=== PATIENT | male | born 1935 | race Caucasian/White ===

== ENCOUNTER 2017-11-06 12:27 | Day surgery (SDC) | payer MEDICARE ==
[2017-11-02 09:14] VITALS: BMI 26.6
[~2017-11-06 12:27] MED LIST: LACTATED RINGERS 1,000 ML IV SCH; LIDOCAINE 1% 20 ML VIAL (10MG/ML) FOR IV START INTRADERMA PRN; MIDAZOLAM 2 MG/2 ML VIAL IV PRN
[2017-11-06 13:31] VITALS: RESP 16; TEMP 97.5
[2017-11-06] MEDS ORDERED: PROPOFOL 10 MG/ML 20 ML VIAL IV ONE (14:41)
[2017-11-06] MEDS ORDERED: GLYCOPYRROLATE 0.2 MG/ML 2 ML VIAL ONE (14:41)
[2017-11-06] MEDS ORDERED: LIDOCAINE 1% INJ 10MG/ML (20 ML MDV) ONE (14:41)
--- NOTE | 2017-11-06 15:15 | P.PCN ---
Date of Procedure: 11/06/17 Procedure(s) Performed: Procedure: Esophagogastroduodenoscopy and biopsy. Preoperative diagnosis: Dysphagia. Postoperative diagnosis: 1. Gastritis but no obvious esophagitis, hiatal hernia or complicated reflux disease. 2. Biopsies obtained from the antrum and esophagus. Preparation and sedation: Was provided by anesthesia. Brief clinical history: The patient is an 82-year-old male who has been having few episodes of obstructive dysphagia over the last couple months or so whereby food with pile up in his esophagus and he would have to bring it up before he can swallow again. I did perform an upper endoscopy back in April 2010 because of reflux symptoms and at that time there was some sustained contractions of the esophagus as I was advancing the endoscope even at the level of the GE junction and I had to apply constant steady pressure before this would let go raising the possibility of hypertonic lower esophageal sphincter or diffuse esophageal spasm or other motility disorders. At that time biopsies of the esophagus showed mild chronic reflux esophagitis. The patient is not having any weight loss or other alarm symptoms.. Procedure: With the patient on his left lateral decubitus position and after informed consent and adequate sedation, I passed the Olympus-GIF 160 video upper endoscope through the cricopharyngeus down the esophagus. As previously observed, the esophagus was going into spasms not allowing the endoscope to go through despite sustained pressure until it finally gives way and relaxes at which time I would be able to pass the endoscope. GE junction was around 40 cm from the incisors and there was no definite hiatal hernia. There was no definite esophagitis or complicated reflux disease including any strictures or Espitia's esophagus. The endoscope was then passed into the stomach which was insufflated with air and inspected in detail including the retroflex view in the cardia. There was some mottling and erythema in the antrum but no ulcers or erosions. Pyloric channel, duodenal bulb, post bulbar area and descending duodenum appeared within normal limits. I obtained biopsies from the antrum and esophagus before the endoscope was withdrawn. The patient tolerated the procedure well. Plan: The patient was reassured. Consideration can be given for a motility study especially if the episodes become more often and if there is nutritional compromise.
[2017-11-06 15:19] VITALS: BP 172/90; PULSE 54
== END 2017-11-06 15:36 | disposition home or self-care (01) ==
LOC: ORWHC2ENDO 12:27
DX: K29.50 Unspecified chronic gastritis without bleeding (principal); K21.0 Gastro-esophageal reflux disease with esophagitis; I10 Essential (primary) hypertension; E78.5 Hyperlipidemia, unspecified; Z79.899 Other long term (current) drug therapy
CPT/HCPCS: 43239; 88305; J2001; J2704

== ENCOUNTER 2022-05-28 18:34 | Emergency (ER) | payer MEDICARE ==
[2022-05-28 18:43] VITALS: TEMP 98
[2022-05-28] MEDS ORDERED: DIPH,PERTUS(ACELL)TETVAC-LF 0.5 ML VIAL IM ONE (19:21)
[2022-05-28] MEDS ORDERED: LIDOCAINE 1% INJ 10MG/ML (30 ML VIAL-PF) SQ ONE (19:22)
--- NOTE | 2022-05-28 19:55 | XR ---
EXAMINATION TYPE: XR hand complete RT DATE OF EXAM: 05/28/2022 7:32 PM INDICATION: Patient age:Male; 86 years old; Reason for study: laceration; PHH. COMPARISON: None TECHNIQUE: Frontal, lateral and oblique views of the right hand were obtained. FINDINGS: No evidence for fracture or dislocation. Advanced degenerative changes of the distal interphalangeal, carpometacarpal and radiocarpal joints. Degenerative changes with blunting of the distal radial ulna r joint. No acute soft tissue abnormalities. No radiopaque foreign bodies. IMPRESSION: 1. No evidence for fracture or dislocation. 2. 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
--- NOTE | 2022-05-28 20:26 | ED ---
General Adult HPI - General Chief complaint: Wound/Laceration Stated complaint: Hand Lac Time Seen by Provider: 05/28/22 19:05 Source: patient, RN notes reviewed Mode of arrival: ambulatory Limitations: no limitations - History of Present Illness Initial comments: 86-year-old male presents the emergency department for right hand laceration. He reports that he was working in his bathroom when he fell backwards and cut his hand on his toilet. He denies hitting his head, loss of consciousness, any anticoagulant use. He did not take any Tylenol or Motrin prior to arrival. He denies any dizziness or lightheadedness, numbness or tingling - Related Data Home Medications Medication Instructions Recorded Confirmed Aspirin [Adult Low Dose Aspirin EC] 81 mg PO MOWEFR 11/02/17 11/06/17 Lovastatin [Mevacor] 40 mg PO QAM 11/02/17 11/06/17 Multivitamins, Thera [Multivitamin 1 tab PO DAILY 11/02/17 11/06/17 (formulary)] lisinopriL [Zestril] 20 mg PO DAILY 11/02/17 11/06/17 Allergies Allergy/AdvReac Type Severity Reaction Status Date / Time No Known Allergies Allergy Verified 11/06/17 13:12 Review of Systems ROS Statement: Those systems with pertinent positive or pertinent negative responses have been documented in the HPI. ROS Other: All systems not noted in ROS Statement are negative. Past Medical History Past Medical History: GERD/Reflux, Hyperlipidemia Additional Past Medical History / Comment(s): recent enlarged lymph node left arm, hx asbestosis, diff swallowing, "throat closes after eating and then taking a drink of cold fluid", History of Any Multi-Drug Resistant Organisms: None Reported Past Surgical History: Tonsillectomy Additional Past Surgical History / Comment(s): skin graft left arm after farm injury, EGD, Colonoscopy Past Anesthesia/Blood Transfusion Reactions: No Reported Reaction Past Psychological History: No Psychological Hx Reported Past Alcohol Use History: Occasional Past Drug Use History: None Reported - Past Family History Sister(s) Family Medical History: Cancer Mother Family Medical History: Cancer General Exam Limitations: no limitations General appearance: alert, in no apparent distress Head exam: Present: atraumatic, normocephalic, normal inspection Eye exam: Present: normal appearance, PERRL, EOMI. Absent: scleral icterus, conjunctival injection, periorbital swelling ENT exam: Present: normal exam, mucous membranes moist Neck exam: Present: normal inspection. Absent: tenderness, meningismus, lymphadenopathy Respiratory exam: Present: normal lung sounds bilaterally. Absent: respiratory distress, wheezes, rales, rhonchi, stridor Cardiovascular Exam: Present: regular rate, normal rhythm, normal heart sounds. Absent: systolic murmur, diastolic murmur, rubs, gallop, clicks GI/Abdominal exam: Present: soft, normal bowel sounds. Absent: distended, tenderness, guarding, rebound, rigid Extremities exam: Present: normal inspection, full ROM, normal capillary refill. Absent: tenderness, pedal edema, joint swelling, calf tenderness Right Hand L/R Front: 1 - laceration (3cm laceration to palmar surface of R hand, without erythema, edema, fluctuance. 2+ radial pulses, distal NVI) Back exam: Present: normal inspection Neurological exam: Present: alert, oriented X3, CN II-XII intact Psychiatric exam: Present: normal affect, normal mood Skin exam: Present: warm, dry, intact, normal color. Absent: rash Course Vital Signs 05/28/22 05/28/22 18:38 20:29 Temperature 98 F Pulse Rate 60 68 Respiratory 53 H 18 Rate Blood Pressure 185/80 173/84 O2 Sat by Pulse 97 97 Oximetry - Reevaluation(s) Reevaluation #1: 05/28/22 19:30 sutures applied to patient patient tolerated well. Procedures - Laceration Laceration #1 Consent Obtained: verbal consent Site: hand Description: linear Depth: simple, single layer Anesthetic Used: lidocaine 1% Anesthesia Technique: local infiltration Amount (mls): 10 Pre-repair: wound explored, irrigated extensively Type of Sutures: vicryl Size of Sutures: 5-0 Number of Sutures: 6 Technique: simple, interrupted Patient Tolerated Procedure: well, no complications Medical Decision Making - Medical Decision Making Was pt. sent in by a medical professional or institution (, PA, DAIRY CLERK, urgent care, hospital, or long-term...) When possible be specific @ -[No] Did you speak to anyone other than the patient for history (EMS, parent, family, police, friend...)? What history was obtained from this source @ -[No] Did you review nursing and triage notes (agree or disagree)? Why? @ -[I reviewed and agree with nursing and triage notes] Were old charts reviewed (outside hosp., previous admission, EMS record, old EKG , old radiological studies, urgent care reports/EKG's, long-term records)? Report findings @ -[No old charts were reviewed] Differential Diagnosis (chest pain, altered mental status, abdominal pain women, abdominal pain men, vaginal bleeding, weakness, fever, dyspnea, syncope, headache, dizziness, GI bleed, back pain, seizure, CVA, palpatations, mental hea lth)? @ -[not applicable] EKG interpreted by me (3pts min.). @ -[As above] X-rays interpreted by me (1pt min.). @ -Right hand x-ray negative for any evidence of foreign body or fracture. CT interpreted by me (1pt min.). @ -[None done] U/S interpreted by me (1pt. min.). @ -[None done] What testing was considered but not performed or refused? (CT, X-rays, U/S, labs)? Why? @ -[None] What meds were considered but not given or refused? Why? @ -[None] Did you discuss the management of the patient with other professionals (professionals i.e. , PA, DAIRY CLERK, lab, RT, psych nurse, geriatric social work professor, audio visual engineer, teacher, custodial officer, counseling case manager)? Give summary @ -[No] Was smoking cessation discussed for >3mins.? @ -[No] Was critical care preformed (if so, how long)? @ -[No] Were there social determinants of health that impacted care today? How? (Homelessness, low income, unemployed, alcoholism, drug addiction, transportati on, low edu. Level, literacy, decrease access to med. care, intermediate, rehab)? @ -[No] Was there de-escalation of care discussed even if they declined (Discuss DNR or withdrawal of care, Hospice)? DNR status @ -[No] What co-morbidities impacted this encounter? (DM, HTN, Smoking, COPD, CAD, Cancer, CVA, ARF, Chemo, Hep., AIDS, mental health diagnosis, sleep apnea, morbid obesity)? @ -[None] Was patient admitted / discharged? Hospital course, mention meds given and route, prescriptions, significant lab abnormalities, going to OR and other pertinent info. @ -6-year-old male presenting to the emergency department for right hand laceration. Patient had a history and physical performed, physical EXAM reveals a 3 cm laceration on the palmar surface of right hand. Patient had 6 sutures placed while in the emergency department. The procedure was tolerated well. All questions and return precautions were discussed with the patient. I discussed the case with Dr. Grier [facility] who agrees with plan for discharge. Undiagnosed new problem with uncertain prognosis? @ -[No] Drug Therapy requiring intensive monitoring for toxicity (Heparin, Nitro, Insulin, Cardizem)? @ -[No] Were any procedures done? @ -[No] Diagnosis/symptom? @ Laceration Acute, or Chronic, or Acute on Chronic? @Acute lt] Uncomplicated (without systemic symptoms) or Complicated (systemic symptoms)? @uncomplicated Side effects of treatment? @ -[No] Exacerbation, Progression, or Severe Exacerbation? @ -[No] Poses a threat to life or bodily function? How? (Chest pain, [place], NC, pneumonia, PE, COPD, DKA, ARF, appy, cholecystitis, CVA, Diverticulitis, Homicidal, Rios icidal, threat to staff... and all critical care pts) @ -[No] Disposition Clinical Impression: Laceration Disposition: HOME SELF-CARE Condition: Stable Instructions (If sedation given, give patient instructions): Laceration (ED) Additional Instructions: Please return to the nearest ED if worsening redness, numbness, or tingling develop. Follow up for removal in 7-10 days Is patient prescribed a controlled substance at d/c from ED?: No If Rx opioid, was Start Talking consent form obtained?: No Referrals: Nonstaff,Physician [Primary Care Provider] - 1-2 days Time of Disposition: 20:25
[2022-05-28 20:29] VITALS: BP 173/84; PULSE 68; RESP 18
== END 2022-05-28 20:32 | disposition home or self-care (01) ==
LOC: EC 18:34
DX: S61.411A Laceration without foreign body of right hand, initial encounter (principal); K21.9 Gastro-esophageal reflux disease without esophagitis; E78.5 Hyperlipidemia, unspecified; Z79.82 Long term (current) use of aspirin; Z79.899 Other long term (current) drug therapy; W26.9XXA Contact with unspecified sharp object(s), initial encounter; Y92.002 Bathroom of unspecified non-institutional (private) residence as the place of occurrence of the external cause; Z23 Encounter for immunization
CPT/HCPCS: 99283; 90471; 12002; 73130; 90715; J2001

== ENCOUNTER 2022-09-29 16:19 | Inpatient (IN) | payer MEDICARE ==
--- NOTE | 2022-09-29 16:37 | ED ---
Fall HPI - General Chief Complaint: Fall Stated Complaint: fall - hip injury Time Seen by Provider: 09/29/22 16:36 Source: patient, RN notes reviewed, old records reviewed, Caregiver Mode of arrival: EMS Limitations: no limitations - History of Present Illness Initial Comments: This is a 87-year-old male here today. Patient presents today after fall this is a fall from standing resulting in severe left hip pain and inability to ambulate. Patient has no significant medical history takes no medications no blood thinners. Did not his head is also consciousness no prior history of orthopedic surgery MD Complaint: fall, other (Severe left hip pain) -: hour(s) Fall From: standing When Fall Occurred: 1 hour [employer] Fall Witnessed: yes, by family Place Fall Occurred: home Loss of Consciousness: none Prolonged Down Time?: no Symptoms Prior to Fall: none Location - Extremities: Left: Thigh, Leg Severity: severe Severity scale (1-10): 10 Quality: sharp Context: tripped/slipped Associated Symptoms: denies - Related Data Home Medications Medication Instructions Recorded Confirmed Aspirin [Adult Low Dose Aspirin EC] 81 mg PO DAILY 11/02/17 09/29/22 Lovastatin [Mevacor] 40 mg PO DAILY 11/02/17 09/29/22 lisinopriL [Zestril] 20 mg PO DAILY 11/02/17 09/29/22 Timolol 0.5% Ophth Soln [Timoptic 1 drop BOTH EYES DAILY 09/29/22 09/29/22 0.5% Ophth Soln] Allergies Allergy/AdvReac Type Severity Reaction Status Date / Time No Known Allergies Allergy Verified 09/29/22 18:03 Review of Systems ROS Statement: Those systems with pertinent positive or pertinent negative responses have been documented in the HPI. ROS Other: All systems not noted in ROS Statement are negative. Past Medical History Past Medical History: GERD/Reflux, Hyperlipidemia Additional Past Medical History / Comment(s): recent enlarged lymph node left arm, hx asbestosis, diff swallowing, "throat closes after eating and then taking a drink of cold fluid", History of Any Multi-Drug Resistant Organisms: None Reported Past Surgical History: Tonsillectomy Additional Past Surgical History / Comment(s): skin graft left arm after farm injury, EGD, Colonoscopy Past Anesthesia/Blood Transfusion Reactions: No Reported Reaction Past Psychological History: No Psychological Hx Reported Past Alcohol Use History: Occasional Past Drug Use History: None Reported - Past Family History Sister(s) Family Medical History: Cancer Mother Family Medical History: Cancer General Exam - General Exam Comments Initial Comments: Airways patent Trachea is midline Breath sounds equal bilaterally Significant deformity of left hip General appearance: alert, in no apparent distress Head exam: Present: atraumatic, normocephalic, normal inspection Eye exam: Present: normal appearance, PERRL, EOMI. Absent: scleral icterus, conjunctival injection, periorbital swelling ENT exam: Present: normal exam, mucous membranes moist Neck exam: Present: normal inspection. Absent: tenderness, meningismus, lymphadenopathy Respiratory exam: Present: normal lung sounds bilaterally. Absent: respiratory distress, wheezes, rales, rhonchi, stridor Cardiovascular Exam: Present: regular rate, normal rhythm, normal heart sounds. Absent: systolic murmur, diastolic murmur, rubs, gallop, clicks GI/Abdominal exam: Present: soft, normal bowel sounds. Absent: distended, tenderness, guarding, rebound, rigid Extremities exam: Present: normal inspection, full ROM, normal capillary refill, other (Significant malformation and deformity of left hip). Absent: tenderness, pedal edema, joint swelling, calf tenderness Back exam: Present: normal inspection Neurological exam: Present: alert, oriented X3, CN II-XII intact Psychiatric exam: Present: normal affect, normal mood Skin exam: Present: warm, dry, intact, normal color. Absent: rash Course Vital Signs 09/29/22 09/29/22 09/29/22 16:31 20:20 20:28 Temperature 98 F Pulse Rate 63 85 85 Respiratory 18 18 16 Rate Blood Pressure 123/57 147/91 141/97 O2 Sat by Pulse 96 98 97 Oximetry - Reevaluation(s) Reevaluation #1: 09/29/22 20:40 Medical records reviewed Reevaluation #2: 09/29/22 20:40 Patient is having difficulty control pain but improving here in the ER Reevaluation #3: 09/29/22 20:40 Patient informed results questions answered Reevaluation #4: 09/29/22 20:40 Was pt. sent in by a medical professional or institution? @ -no Did you speak to anyone other than the patient for history? @ -no Did you review nursing and triage notes? @ -agree Were old charts reviewed? @ -no Differential Diagnosis? @ -prior EKG interpreted by me (3pts min.)? @ -yes X-rays interpreted by me (1pt min.)? @ -yes CT interpreted by me (1pt min.)? @ -no U/S interpreted by me (1pt. min.)? @ -no What testing was considered but not performed? (CT, X-rays, U/S, labs)? Why? @ -no What meds were considered but not given? Why? @ -no Did you discuss the management of the patient with other professionals? @ -no Did you reconcile home meds? @ -no Was smoking cessation discussed for >3mins.? @ -no Was critical care preformed (if so, how long)? @ -no Were there social determinants of health that impacted care today? How? (Katie elessness, low income, unemployed, alcoholism, drug addiction, transportation, low edu. Level, literacy, decrease access to med. care, usp, rehab)? @ -no Was there de-escalation of care discussed even if they declined? (Discuss DNR or withdrawal of care, Hospice)? @ -no What co-morbidities impacted this encounter? (DM, HTN, Smoking, COPD, CAD, Cancer, CVA, Hep., AIDS, mental health diagnosis, sleep apnea, morbid obesity)? @ -none Was patient admitted / discharged? @ -admit Undiagnosed new problem with uncertain prognosis? @ -no Drug Therapy requiring intensive monitoring for toxicity (Heparin, Nitro, Insulin, Cardizem)? @ -no Were any procedures done? @ -no Diagnosis/symptom? @ -Fall,LeftHipFx,Weak Acute, or Chronic, or Acute on Chronic? @ -acute Uncomplicated (without systemic symptoms) or Complicated (systemic symptoms)? @ -uncomplicated Side effects of treatment? @ -no Exacerbation, Progression, or Severe Exacerbation] @ -no Poses a threat to life or bodily function? @ -no 09/29/22 20:40 Reevaluation #5: 09/29/22 20:40 Differential Weakness: Hypoglycemia, shock, sepsis, hyponatremia, anemia, infection, ID, ETOH, adverse medicine reaction, overdose, stroke, this is not meant to be an all-inclusive list. - Consultations Consultation #1: Spoke with Dr. Gudmundson who did evaluate patient himself in the emergency department Medical Decision Making - Medical Decision Making 87 male to the emergency department for evaluation status post fall with severe left leg pain. Positive left leg fracture will admit for orthopedic evaluation and treatment - Lab Data Result diagrams: 09/29/22 17:41 09/29/22 17:41 Lab Results 09/29/22 09/29/22 09/29/22 Range/Units 17:41 17:41 17:41 WBC 10.1 (3.8-10.6) k/uL RBC 3.66 L (4.30-5.90) m/uL Hgb 11.8 L (13.0-17.5) gm/dL Hct 33.0 L (39.0-53.0) % MCV 90.1 (80.0-100.0) fL MCH 32.2 (25.0-35.0) pg MCHC 35.8 (31.0-37.0) g/dL RDW 13.5 (11.5-15.5) % Plt Count 226 (150-450) k/uL MPV 8.0 Neutrophils % 82 % Lymphocytes % 8 % Monocytes % 6 % Eosinophils % 2 % Basophils % 0 % Neutrophils # 8.3 H (1.3-7.7) k/uL Lymphocytes # 0.8 L (1.0-4.8) k/uL Monocytes # 0.6 (0-1.0) k/uL Eosinophils # 0.2 (0-0.7) k/uL Basophils # 0.0 (0-0.2) k/uL PT 10.7 (9.0-12.0) sec INR 1.0 (<1.2) APTT 21.6 L (22.0-30.0) sec Sodium 139 (137-145) mmol/L Potassium 4.5 (3.5-5.1) mmol/L Chloride 105 (98-107) mmol/L Carbon Dioxide 29 (22-30) mmol/L Anion Gap 5 mmol/L BUN 24 H (9-20) mg/dL Creatinine 1.09 (0.66-1.25) mg/dL Est GFR (CKD-EPI)AfAm 69 (>60 ml/min/1.73 sqM) Est GFR (CKD-EPI)NonAf 60 (>60 ml/min/1.73 sqM) Glucose 124 H (74-99) mg/dL Calcium 8.8 (8.4-10.2) mg/dL Phosphorus 3.3 (2.5-4.5) mg/dL Magnesium 2.0 (1.6-2.3) mg/dL Total Bilirubin 0.5 (0.2-1.3) mg/dL AST 27 (17-59) U/L ALT 19 (4-49) U/L Alkaline Phosphatase 92 (38-126) U/L Total Protein 6.8 (6.3-8.2) g/dL Albumin 4.0 (3.5-5.0) g/dL - Radiology Data Radiology results: report reviewed (X-ray left leg and left hip is positive for fracture, chest is negative for acute disease), image reviewed Disposition Clinical Impression: Fall, Closed left hip fracture Disposition[facility] Condition: Fair Is patient prescribed a controlled substance at d/c from ED?: No Time of Disposition: 18:40
--- NOTE | 2022-09-29 17:27 | XR ---
EXAMINATION TYPE: XR Hip LT and AP Pelvis DATE OF EXAM: 09/29/2022 4:59 PM INDICATION: Patient age:Male; 87 years old; Reason for study: fall; COMPARISON: None. TECHNIQUE: The left hip was examined in the frontal and lateral projections and a AP pelvis. FINDINGS/IMPRESSION: Left femoral neck fracture with varus deformity and shortening. No additional fr actures definitively visualized. Multilevel disc degeneration changes of the spine. 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
[2022-09-29] MEDS ORDERED: SODIUM CHLORIDE 0.9% 1,000 ML IV STA (17:36)
[2022-09-29] MEDS ORDERED: MORPHINE SULFATE 4 MG/ML SYRINGE IV STA (17:36)
[2022-09-29 18:07] LABS: Basophils % (A) 0 %; Eosinophils # (A) 0.2 k/uL (0-0.7); Eosinophils % (A) 2 %; HGB 11.8 gm/dL (13.0-17.5); Lymphocytes # (A) 0.8 k/uL (1.0-4.8); Lymphocytes % (A) 8 %; MCH 32.2 pg (25.0-35.0); MCHC 35.8 g/dL (31.0-37.0); MCV 90.1 fL (80.0-100.0); Monocytes # (A) 0.6 k/uL (0-1.0); Monocytes % (A) 6 %; Neutrophils # (A) 8.3 k/uL (1.3-7.7); Neutrophils % (A) 82 %; Platelet Count 226 k/uL (150-450); RBC 3.66 m/uL (4.30-5.90); RDW 13.5 % (11.5-15.5); WBC 10.1 k/uL (3.8-10.6)
[2022-09-29 18:26] LABS: Calcium 8.8 mg/dL (8.4-10.2); Phosphorus 3.3 mg/dL (2.5-4.5); Potassium 4.5 mmol/L (3.5-5.1); Total Bilirubin 0.5 mg/dL (0.2-1.3); Total Protein 6.8 g/dL (6.3-8.2)
[2022-09-29 18:32] LABS: Partial Thromboplastin Time 21.6 sec (22.0-30.0); Prothrombin Time 10.7 sec (9.0-12.0)
[2022-09-29] MEDS ORDERED: ACETAMINOPHEN TAB 325 MG TAB PO PRN (18:46)
[2022-09-29] MEDS ORDERED: MORPHINE SULFATE 4 MG/ML SYRINGE IV PRN (18:46)
[2022-09-29] MEDS ORDERED: NALOXONE 0.4 MG/ML 1 ML VIAL IV PRN (18:46)
[2022-09-29] MEDS ORDERED: HYDROmorphone 1 MG/ML 1 ML SYRINGE IVP STA (19:47)
--- NOTE | 2022-09-29 20:49 | XR ---
EXAMINATION TYPE: XR chest 1V DATE OF EXAM: 09/29/2022 8:42 PM COMPARISON: None TECHNIQUE: XR chest 1V Frontal view of the chest. CLINICAL INDICATION:Male, 87 years old with history of fall; FINDINGS: Lungs/Pleura: There is no evidence of pleural effusion, focal consolidation, or pneumothorax. Scatte red opacities are seen particularly the lungs with a more linear one projecting over the pericardium. Pulmonary vascularity: Unremarkable. Heart/mediastinum: Cardiomediastinal silhouette is unremarkable. Atherosclerotic calcifications are seen in the aorta. Musculoskeletal: No acute osseous pathology. IMPRESSION: No acute cardiopulmonary disease/process. Scattered densities project over the lungs which could represent pleural calcifications. No priors ar e available for comparison. Consider follow-up CT chest
--- NOTE | 2022-09-29 21:11 | XR ---
EXAMINATION TYPE: XR Hip LT and AP Pelvis DATE OF EXAM: 09/29/2022 8:42 PM INDICATION: Patient age:Male; 87 years old; Reason for study: Fall; COMPARISON: Same day radiograph TECHNIQUE: The left hip was examined in the frontal and lateral projections and a AP pelvis. FINDINGS/IMPRESSION: Comminuted left proximal intertrochanteric fracture is better visualized on this exam with improved positioning. Fractures fragments do extend into the subtrochanteric region. The femoral neck appears intact on this radiograph graft. Mild displacement of the fracture fragments.
[2022-09-29] MEDS: SODIUM CHLORIDE 0.9% 1,000 ML IV SCH (22:19)
[2022-09-29] MEDS: HYDROmorphone 1 MG/ML 1 ML SYRINGE IVP PRN (22:42)
--- NOTE | 2022-09-30 02:07 | P.CONS ---
History of Present Illness - Reason for Consult Consult date: 09/29/22 - History of Present Illness The patient is an 87-year-old male with a PMH of hypertension and hyperlipidemia who presents to the emergency room after a fall. The patient reports that he was attempting to get into his car when he lost his balance, falling to his left side and experiencing severe pain at the site immediately after. Patient states he was unable to stand up as a result of the pain. In the emergency room, a left hip x-ray revealed a left femoral neck fracture with varus deformity. Patient reported that his pain was 0 out of 10 at rest at the time of interview and 5 out of 10 with any movement involving the left leg. He denied any additional complaints. He denied experiencing lost consciousness, chest discomfort, shortness of breath. He denied experiencing head trauma during the fall. The patient reports exposure to asbestos while working in [employer] years ago. The patient states he previously had x-rays done which revealed pleural plaques which were followed by a provider. He denies experiencing shortness of breath. Reports not using any inhalers. ED documentation reviewed and case discussed with ED provider. Review of systems: Pertinent positives and negatives as discussed in HPI, a complete review of systems was performed and all other systems are negative. Physical examination: Vital signs reviewed General: non toxic, no distress, appears at stated age, normal weight Derm: no unusual rashes/lesions, warm Head: atraumatic, normocephalic, symmetric Eyes: EOMI, no lid lag, anicteric sclera, pupils equal round reactive to light ENT: Nose and ears atraumatic Neck: No cervical lymphadenopathy, trachea midline, supple Mouth: no lip lesion, mucus membranes moist Cardiovascular: S1S2 reg, no murmur, positive dorsalis pedis pulse bilateral, no edema Lungs: CTA bilateral, no rhonchi, no rales, no accessory muscle use Abdominal: soft, nontender to palpation, no guarding Ext: muscle strength 5 out of 5 in all extremities grossly except left lower extremity due to pain in the left hip, distal left lower extremity strength 5 out of 5 including ankle extension and flexion, no gross muscle atrophy, no contractures, Neuro: CN II-XI grossly intact, no gross focal neuro deficits Psych: Alert, oriented, appropriate affect Assessment: Preoperative evaluation -RCRI score 0: 3.9% 30 day risk of , NE, or cardiac arrest -Patient reports an excellent exercise tolerance and reports being able to ambulate up stairs without difficulty -Reports that he performs all his ADLs independently at baseline -The patient's primary risk factor for perioperative complications appears to be his advanced age. The patient has no additional obvious modifiable risk factors and he is optimized for orthopedic L hip fracture repair surgery Chronic conditions: Hypertension, hyperlipidemia Imaging: Initial left hip x-ray revealed left femoral neck fracture with varus deformity and shortening. Subsequent left hip x-ray revealed a comminuted left proximal intertrochanteric fracture which was better visualized with fracture fragments extending into the subtrochanteric region of the femoral neck and now appearing intact. A chest x-ray revealed some scattered densities that project over the lungs which was present for calcifications. Data Review: Laboratory evaluation revealed WBC count of 11.8, BUN 24, glucose 124. Plan: Patient scheduled for left hip fracture upper repair in a.m. Continue patient's home medications including lisinopril and lovastatin Past Medical History Past Medical History: GERD/Reflux, Hyperlipidemia Additional Past Medical History / Comment(s): recent enlarged lymph node left arm, hx asbestosis, diff swallowing, "throat closes after eating and then taking a drink of cold fluid", History of Any Multi-Drug Resistant Organisms: None Reported Past Surgical History: Tonsillectomy Additional Past Surgical History / Comment(s): skin graft left arm after farm injury, EGD, Colonoscopy Past Anesthesia/Blood Transfusion Reactions: No Reported Reaction Past Psychological History: No Psychological Hx Reported Past Alcohol Use History: Occasional Past Drug Use History: None Reported - Past Family History Sister(s) Family Medical History: Cancer Mother Family Medical History: Cancer Medications and Allergies Home Medications Medication Instructions Recorded Confirmed Type Aspirin [Adult Low Dose Aspirin EC] 81 mg PO DAILY 11/02/17 09/29/22 History Lovastatin [Mevacor] 40 mg PO DAILY 11/02/17 09/29/22 History lisinopriL [Zestril] 20 mg PO DAILY 11/02/17 09/29/22 History Timolol 0.5% Ophth Soln [Timoptic 1 drop BOTH EYES DAILY 09/29/22 09/29/22 History 0.5% Ophth Soln] Allergies Allergy/AdvReac Type Severity Reaction Status Date / Time No Known Allergies Allergy Verified 09/29/22 18:03 Physical Exam Vitals: Vital Signs Temp Pulse Resp BP Pulse Ox 09/29/22 20:20 85 18 147/91 98 09/29/22 16:31 98 F 63 18 123/57 96 Intake and Output 09/29/22 09/29/22 09/29/22 06:59 14:59 22:59 Other: Weight 72.575 kg Results CBC & Chem 7: 09/29/22 17:41 09/29/22 17:41 Labs: Abnormal Lab Results - Last 24 Hours (Table) 09/29/22 09/29/22 09/29/22 Range/Units 17:41 17:41 17:41 RBC 3.66 L (4.30-5.90) m/uL Hgb 11.8 L (13.0-17.5) gm/dL Hct 33.0 L (39.0-53.0) % Neutrophils # 8.3 H (1.3-7.7) k/uL Lymphocytes # 0.8 L (1.0-4.8) k/uL APTT 21.6 L (22.0-30.0) sec BUN 24 H (9-20) mg/dL Glucose 124 H (74-99) mg/dL
[2022-09-30] MEDS: HYDROmorphone 1 MG/ML 1 ML SYRINGE IVP PRN (05:29)
[2022-09-30] MEDS: SODIUM CHLORIDE 0.9% 1,000 ML IV SCH ×3 (05:50→20:19)
--- NOTE | 2022-09-30 07:58 | P.HPOR ---
History of Present Illness H&P Date: 09/30/22 87 yo male presented to ED with pain in left hip. Pt was getting into car when he slipped and fell and felt a pop in his left hip. Extreme pain followed, and he could not ambulate. He was brought to ED via EMS. He states pain in his hip with any motion. States no numbness/tingling. States no BHT or LOC with the fall. Denies any other areas of injury at this time. He states no significant medical history other than asbestos exposure when he was young but has had no lung issues since. Denies any f/c/sob/cp at this time. Family at bedside during evaluation. Review of Systems 14 points review of systems completed and as stated in HPI, all other systems reviewed are negative. Past Medical History Past Medical History: GERD/Reflux, Hyperlipidemia Additional Past Medical History / Comment(s): recent enlarged lymph node left arm, hx asbestosis, diff swallowing, "throat closes after eating and then taking a drink of cold fluid", History of Any Multi-Drug Resistant Organisms: None Reported Past Surgical History: Tonsillectomy Additional Past Surgical History / Comment(s): skin graft left arm after farm injury, EGD, Colonoscopy Past Anesthesia/Blood Transfusion Reactions: No Reported Reaction Past Psychological History: No Psychological Hx Reported Past Alcohol Use History: Occasional Past Drug Use History: None Reported - Past Family History Sister(s) Family Medical History: Cancer Mother Family Medical History: Cancer Medications and Allergies Home Medications Medication Instructions Recorded Confirmed Type Aspirin [Adult Low Dose Aspirin EC] 81 mg PO DAILY 11/02/17 09/29/22 History Lovastatin [Mevacor] 40 mg PO DAILY 11/02/17 09/29/22 History lisinopriL [Zestril] 20 mg PO DAILY 11/02/17 09/29/22 History Timolol 0.5% Ophth Soln [Timoptic 1 drop BOTH EYES DAILY 09/29/22 09/29/22 History 0.5% Ophth Soln] Allergies Allergy/AdvReac Type Severity Reaction Status Date / Time No Known Allergies Allergy Verified 09/29/22 18:03 Physical Examination Osteopathic Statement: *. No significant issues noted on an osteopathic structural exam other than those noted in the History and Physical/Consult. Physical Exam: -Patient is alert and oriented 3 appears well-nourished well-hydrated is in no acute distress. They do not appear septic. -There is TTP about the left hip -Upper extremities show [5] out of 5 strength in all major muscle groups. -Lower extremities with [5] out of 5 strength in all major muscle groups and left lower extremity which is difficult to test due to his pain -There is [FROM] that is [painless] of the b/l UE and LE in all major joints. positive log roll left -They are intact to light touch sensation in C5 to T1 and L2 to S1 nerve distribution. -DTR [2]/4 all upper and lower extremities -Patient has palpable distal pulses all 4 ext -Compartments are soft and compressible. -Patient shows a negative Estrellita's [-Neg Hoffmans b/l] [-Neg Clonus b/l] [-Neg babinski b/l] Cranial nerves II through XII are grossly intact. Results Xrays of the hip and pelvis demonstrate a4 part IT fracture, comminuted, displaced, rotated and shortened. Closed. No other fractures evident at this time. - Labs Labs: Abnormal Lab Results - Last 24 Hours (Table) 09/29/22 09/29/22 09/29/22 Range/Units 17:41 17:41 17:41 RBC 3.66 L (4.30-5.90) m/uL Hgb 11.8 L (13.0-17.5) gm/dL Hct 33.0 L (39.0-53.0) % Neutrophils # 8.3 H (1.3-7.7) k/uL Lymphocytes # 0.8 L (1.0-4.8) k/uL APTT 21.6 L (22.0-30.0) sec BUN 24 H (9-20) mg/dL Glucose 124 H (74-99) mg/dL H & H 09/29/22 Range/Units 17:41 Hgb 11.8 L (13.0-17.5) gm/dL Hct 33.0 L (39.0-53.0) % Coagulation 09/29/22 Range/Units 17:41 INR 1.0 (<1.2) Result Diagrams: 09/29/22 17:41 09/29/22 17:41 Assessment and Plan Assessment: 1. Right hip IT fracture, 4 part , closed. 2. s/p ffs Plan: Orthopedic Surgery Risk Review Shahid Davila is a 87 yo male presenting for evaluation of sudden onset Left hip pain, inability to ambulate after fall from standing. It was my pleasure to have seen and examinedShahid Davila. In our visit today we have had a chance to go over subjective complaints, physical examination findings and treatments including the natural course history without intervention and various interventional options. His imaging demonstrates Left hip IT fracture. On physical exam, Shahid Davila demonstrates pain with motion of LLE, which is NV intact at this time. I have explained to the patient that this fracture needs stabilization. Based on the patients imaging, physical exam, and the rapid progression and disabling nature of her symptoms, at this time I recommend surgery in the form or a: Left hip IMN fixation I discussed the risk and benefits of this procedure at length with Shahid Davila and his family at bedside. Questions were invited and answered, and the patient wishes to proceed as outlined below. Currently, I am recommendin. Left hip intramedullary nail fixation 2. Review of surgical risks and benefits as well as an educational packet on the proposed surgical procedure. Risks: All surgical procedures come with inherent risks, including those related to positioning, anesthesia, intraoperative findings, and postoperative complications. It is important to understand that surgery does not come with any guarantee of a successful outcome as complications and adverse events are always possible. The patient was given a handout discussing the surgical procedure and risks associated with the intervention, both of which were discussed with the patient. These risks include but are not limited to the following: - Experiencing same, different or even worse symptoms compared to before surgery. - Requiring further surgery or other forms of treatment presently or at some time in the future . - On an extreme but fortunately relatively rare basis severe complication such as blindness, stroke, heart attack, temporary and/or permanent nerve injury, paralysis, coma, or may occur, sometimes without known explanation. - Surgical complications may include but are not limited to risk of infection, fluid accumulation in the surgical dissection site, including a seroma or hematoma, that requires additional surgery, wound drainage, bleeding, new numbness or weakness, vision changes/loss, spinal fluid leakage, non-healing and/or infected incision, headaches, difficulty or inability to swallow, hoarseness, hemopneumothorax, pneumothorax, injury to nerves, spinal cord, blood vessels, lymphatics or other vital organs (i.e., bowel injury, injury to the great vessels); heterotopic bone formation; complications related to the hardware such as screws, rods, including misplaced hardware, device failure, hardware fracture/breakage, or hardware loosening; retained surgical instrumentations or devices and the need for further surgery. - Medical risks of the planned surgery include but are not limited to generalized Infections to the whole body or local areas outside of the surgical site (sepsis), heart attack, bleeding, anaphylaxis, meningitis, seizure, epilepsy, hearing loss, burn al, laceration of the head or other areas of the body, bruising, hypersensitivity of the skin, bladder over distension; allergic reaction; shoulder injury related to positioning; fat, blood and air clots to other areas of the body like heart, lungs, brain; failure of internal organs such as lungs, kidneys, liver and excessive bleeding. If blood transfusions are necessary, note that transfusions may cause intolerance reactions such as anaphylaxis or other complex reactions. Despite best efforts, the results of surgery might not heal in terms of bone, soft tissues such as skin, fascia, ligaments, and joints. [facility] has multiple operating rooms with single and overlapping rooms running daily. They currently function under the required guidelines as produced by the [facility] [employer] with regards to the overlapping rooms and will continue to comply with changes to this policy as they occur. The requirements include and are complied with as follows: (1) the critical portions of the overlapping rooms will not occur at the same time, (2) the attending physician will be physically present during the critical portions of the procedure and immediately available during the entire case, and (3) a back-up attending is designated should the primary attending not be immediately available. The patient has had a chance to review all the listed information, has been given print outs detailing this information, and has had all his/her questions answered to their satisfaction. It was my pleasure to have seen and examined Shahid Davila. In our visit today we have had a chance to go over my understanding of our patient's current condition, the natural course history without intervention and various interventional options. Questions were invited and answered, and the patient wishes to proceed as outlined above. I have seen and examined the patient for 25 minutes and we have spent more than 50% of the time in repeat and detailed counseling about the patient's condition, its natural course history with out and as much as can be predicted with surgery and re-review of various surgical treatment options. In conclusion,Shahid Davila and family at bedside requested we proceed with the above suggested surgery and are willing to accept risks and limitations of the suggested surgery as nature of the disease process and our best attempts at treatment for the condition. Thank you again for allowing us to be part of your patient's care. Please don't hesitate to contact me if you have any further questions. Signed and authenticated by: [facility] [address] [facility], [address] [address]
[2022-09-30] MEDS ORDERED: LACTATED RINGERS 1,000 ML IV ONE (08:28)
[2022-09-30] MEDS ORDERED: fentaNYL (PF) 50 MCG/ML 2 ML AMP ONE (08:28)
[2022-09-30] MEDS ORDERED: MIDAZOLAM 2 MG/2 ML VIAL ONE (08:28)
[2022-09-30] MEDS ORDERED: PHENYLEPHRINE-0.9% NACL SYG 1,000 MCG/10 ML SYRINGE ONE (08:28)
[2022-09-30] MEDS ORDERED: KETAMINE 10 MG/ML 20 ML VIAL ONE (08:28)
[2022-09-30] MEDS ORDERED: SODIUM CHLORIDE 0.9% 50 ML with ceFAZolin 2,000 MG IV ONE ×2 (08:45)
[2022-09-30] MEDS ORDERED: BUPIVACAINE (PF) 0.25% 30 ML VIAL SQ ONE ×2 (09:06→09:17)
[2022-09-30] MEDS ORDERED: NALOXONE 0.4 MG/ML 1 ML VIAL IV PRN (09:45)
--- NOTE | 2022-09-30 09:51 | XR ---
Fluoroscopy INDICATION: Pain FINDINGS: Fluoroscopy time: 1 minute 9.8 seconds. Total dose area product (DAP) in uGy*m?, mGy*cm? (or similar): 4.1753 Images obtained: 4. IMPRESSIONS: 1. Documentation of fluoroscopy.
--- NOTE | 2022-09-30 10:50 | XR ---
EXAMINATION TYPE: XR Hip Limited LT DATE OF EXAM: 09/30/2022 COMPARISON: 09/29/2022 HISTORY: Fracture TECHNIQUE: AP left hip FINDINGS: There is placement of a medullary pari and hip pins. No new fractures are evident. Femoral h ead articulates with the acetabulum. Postsurgical soft tissue changes are present. Surgical skin stap les are present laterally. IMPRESSION: 1. Status post open reduction internal fixation left hip fracture
[2022-09-30] MEDS: HYDROcodone/APAP 5-325MG 1 EACH TAB PO PRN ×2 (13:13→20:18)
[2022-09-30] MEDS: HYDROmorphone 0.5 MG/0.5 ML SYRINGE IVP PRN ×2 (14:33→17:33)
--- NOTE | 2022-09-30 16:43 | P.PN ---
Subjective Progress Note Date: 09/30/22 Hospital course: Patient is a very pleasant 87-year-old male with a past medical history of hypertension, hyperlipidemia, GERD, glaucoma and asbestosis. Patient presented to the emergency department on 09/29/22 secondary to left hip pain status post mechanical fall. Patient reported he was attempting to get in his car when he lost balance and fell onto his left side resulting in immediate pain and inability to stand. Patient denied hitting his head, losing consciousness, or experiencing any other injuries in this fall. He underwent full evaluation in the emergency department. X-ray left hip was completed in radiology report reviewed stating left femoral neck fracture with varus deformity and shortening. Labs were completed and reviewed. CBC showing normocytic anemia with hemoglobin of 11.8. BMP revealing prerenal azotemia with BUN of 24 and stable glucose of 124. Liver profile was unremarkable. Magnesium also normal findings at 2.0. Patient was admitted under orthopedic surgery team and we were consulted for medical clearance and medical management throughout hospitalization. Patient underwent ORIF with intramedullary pari insertion of left hip by Dr. Wilson on 09/30/22. Physical exam: Patient seen and fully evaluated in room 475 upon return from a wheelchair. Patient remains slightly sedated but easily awoken via verbal stimuli. Patient currently denies having any pain or complaints. Vital signs reviewed and stable. General: Nontoxic, no distress and appears stated age. Derm: Skin warm and dry, normal coloration for ethnicity. Postoperative dressing clean, dry, and intact left lateral hip/thigh. Head: Atraumatic, normocephalic and symmetric. Eyes: EOMs intact, no lid lag, and anicteric sclera Mouth: no lip lesions, mucus membranes moist Cardiovascular: regular rate and rhythm with normal S1S2, systolic murmur, positive posterior tibial pulses bilaterally, and cap refill < 2 seconds. Lungs: Respirations even, regular, and unlabored on room air. Lungs diminished with no rhonchi, no rales, no wheezing, and no accessory muscle usage. Abdominal: soft, nontender to palpation, no guarding, no appreciable organomegaly Ext: ROM intact. No gross muscle atrophy, no edema, no contractures Neuro: Speech clear, face symmetrical and CN II-XII grossly intact with no noted focal neuro deficits Psych: Alert and oriented to person, place, time, and situation. Appropriate and pleasant affect. Assessment and Plan of Care: Fall resulting in displaced left femoral neck fracture Status post ORIF with intramedullary pari insertion of left hip by Dr. Wilson on 09/30/22. -Symptomatic care and pain management. -Management of DVT prophylaxis, pain management, wound/dressing care, weightbearing, and PT/OT per primary admitting orthopedic surgery team. -Currently DVT prophylaxis with Lovenox 40 mg daily. -Order placed for repeat CBC and BMP tomorrow morning, we will follow-up on postoperative hemoglobin, renal function and electrolyte levels and place additional orders as needed based upon these results. History of asbestosis -Oxygenation to be administered as needed and titrated as needed to maintain SPO2 equal to or greater than 92% -Monitor Pulse-oximetry -Order placed for Duonebs as needed for SOB and/or wheezing -Order placed for Incentive Spirometry, encourage use 10-15 times hourly while awake. History of hypertension -Currently blood pressure stable 125/75. -Home medications reviewed and reordered. Patient to continue with lisinopril 20 mg daily. History of hyperlipidemia Medications reviewed and reordered. Patient to continue with lovastatin 40 mg daily. History of glaucoma -Home medications reviewed and reordered. Patient to continue with atenolol 0.5% ophthalmologic drops, 1 drop each eye daily. Thank you for allowing us to participate in the care of this pleasant patient. Do not hesitate to contact us with questions. Someone can be reached from the [facility] hospitalist group all hours of the day at [phone] or via perfect serve. Patient was seen independently by Nurse Pracitioner. This document was prepared using [employer] dictation software. Please allow for errors in casket assembler metal, while rare they do occur. Yvon Jeter NP rendered care for this patient independently, reviewed the findings and plan as documented in the note above. I did not physically speak with or examine the patient on this date. Objective - Vital Signs Vital signs: Vital Signs Temp 98.1 F 09/30/22 07:04 Pulse 77 09/30/22 07:04 Resp 18 09/30/22 07:04 BP 117/64 09/30/22 07:04 Pulse Ox 95 09/30/22 07:04 FiO2 Intake & Output 09/29/22 09/30/22 09/30/22 18:59 06:59 18:59 Intake Total 50 Output Total 425 Balance -425 50 Weight 72.575 kg 72.575 kg Intake: IV 50 Output: Urine 425 Other: Voiding Method Indwelling Catheter Indwelling Catheter - Labs CBC & Chem 7: 10/02/22 04:48 10/02/22 04:48 Labs: Abnormal Lab Results - Last 24 Hours (Table) 09/29/22 09/29/22 09/29/22 Range/Units 17:41 17:41 17:41 RBC 3.66 L (4.30-5.90) m/uL Hgb 11.8 L (13.0-17.5) gm/dL Hct 33.0 L (39.0-53.0) % Neutrophils # 8.3 H (1.3-7.7) k/uL Lymphocytes # 0.8 L (1.0-4.8) k/uL APTT 21.6 L (22.0-30.0) sec BUN 24 H (9-20) mg/dL Glucose 124 H (74-99) mg/dL
[2022-09-30] MEDS ORDERED: IPRATROPIUM-ALBUTEROL 3 ML NEB INHALATION PRN (17:53)
[2022-09-30] MEDS: SENNOSIDES-DOCUSATE SODIUM 1 EACH TAB PO SCH (20:18)
[2022-10-01] MEDS: SODIUM CHLORIDE 0.9% 1,000 ML IV SCH ×2 (00:02→10:39)
[2022-10-01] MEDS: HYDROmorphone 0.5 MG/0.5 ML SYRINGE IVP PRN ×4 (00:02→13:05)
[2022-10-01] MEDS: HYDROcodone/APAP 5-325MG 1 EACH TAB PO PRN ×4 (04:53→23:06)
[2022-10-01] MEDS: ATORVASTATIN 10 MG TAB PO SCH (08:28)
[2022-10-01] MEDS: lisinopriL 20 MG TAB PO SCH (08:28)
[2022-10-01] MEDS: ENOXAPARIN 40 MG/0.4 ML SYRINGE SQ SCH (08:28)
[2022-10-01] MEDS: TIMOLOL 0.5% OPHTH DROPS 5 ML BTL BOTH EYES SCH (09:54)
[2022-10-01 10:32] LABS: African American GFR (CKD) >90 (>60 ml/min/1.73 sqM); Anion Gap 8 mmol/L; Blood Urea Nitrogen 12 mg/dL (9-20); Calcium 7.9 mg/dL (8.4-10.2); Carbon Dioxide 24 mmol/L (22-30); Chloride 105 mmol/L (98-107); Glucose 130 mg/dL (74-99); Magnesium 1.8 mg/dL (1.6-2.3); Non-African American GFR(CKD) 80 (>60 ml/min/1.73 sqM); Potassium 3.9 mmol/L (3.5-5.1); Sodium 137 mmol/L (137-145)
[2022-10-01 10:57] LABS: HCT 24.3 % (39.0-53.0); MCH 31.5 pg (25.0-35.0); MCHC 33.7 g/dL (31.0-37.0); MCV 93.3 fL (80.0-100.0); Mean Platelet Volume 8.6; Platelet Count 168 k/uL (150-450); RDW 13.8 % (11.5-15.5); WBC 11.2 k/uL (3.8-10.6)
[2022-10-01 10:58] LABS: HGB 8.2 gm/dL (13.0-17.5)
--- NOTE | 2022-10-01 11:18 | P.PN ---
Subjective Progress Note Date: 10/01/22 Principal diagnosis: 1. left hip IT fracture, 4 part , closed. 2. s/p ffs Patient seen and examined this morning at bedside. Patient is resting currently in bed. Patient does have complaint of pain in the left hip with any activity. Medication will be adjusted. Patient denies any numbness or tingling into the left lower extremity. Encouraged patient to work with physical therapy today. Surgical dressing to the left hip is clean dry and intact. Patient's been afebrile, denies nausea/vomiting, or chest pain. Objective - Vital Signs Vital signs: Vital Signs Temp 98.6 F 10/01/22 07:39 Pulse 93 10/01/22 07:39 Resp 18 10/01/22 07:39 BP 122/71 10/01/22 07:39 Pulse Ox 92 L 10/01/22 07:39 FiO2 Intake & Output 09/30/22 10/01/22 10/01/22 18:59 06:59 18:59 Intake Total 1590 236 Output Total 550 350 Balance 1040 -350 236 Intake: IV 1590 Sodium Chloride 0.9% 1, 1040 000 ml @ 130 mls/hr IV . Q7H42M [facility] Rx#:[id number] Oral 236 Output: Urine 500 350 Estimated Blood Loss 50 Other: Voiding Method Indwelling Catheter Indwelling Catheter Indwelling Catheter - Exam Patient is awake, alert and oriented. No acute distress. Well developed, hydr ated and nourished. Appears stated age. They do not appear septic. On exam, the patient has tenderness to palpation over the left hip. Surgical dressings are CDI. Skin is warm, dry and intact without rashes or lesions. Appropriate color for ethnicity. Nailbeds pink with no cyanosis or clubbing. Upper and lower extremities are atraumatic in appearance without tenderness or deformity. Full range of motion is noted to all joints, with exception to left hip due to limitation due to pain and stiffness from surgical procedure. Muscle strength is 5/5 bilateral upper extremities, and 4/5 in bilateral lower extremities. Road Hogger Operator strength is normal bilaterally. Dorsi/plantar flexion is normal bilaterally.Tendon function is normal. Capillary refill is less than 3 seconds in all extremities. Palpable dorsalis pedis and posterior tibial pulses. Sensation is intact bilaterally, They are intact to light touch sensation in L2 to S1 nerve distribution. Reflexes 2+ bilaterally. Cranial nerves are intact. No clonus is noted. No tensioning signs. Compartments are soft and compressible. - Labs CBC & Chem 7: 10/01/22 06:45 10/01/22 06:45 Labs: Abnormal Lab Results - Last 24 Hours (Table) 10/01/22 10/01/22 Range/Units 06:45 06:45 WBC 11.2 H (3.8-10.6) k/uL RBC 2.60 L (4.30-5.90) m/uL Hgb 8.2 L D (13.0-17.5) gm/dL Hct 24.3 L (39.0-53.0) % Glucose 130 H (74-99) mg/dL Calcium 7.9 L (8.4-10.2) mg/dL Assessment and Plan Assessment: Postop day 1: Left hip IMN fixation 1. Left hip IT fracture, 4 part , closed. 2. s/p ffs Plan: -Appreciate transformation consultant and team management. -Activity: Ambulate QID, OOB all meals, up and about, limit lifting bending twisting to less than 5 lbs. Use walker or cane if needed for stability. -Daily PT/OT, increase ambulation strength and balance. -Pain control: Adequate at this time -Meds: reviewed -GI ppx: senna, Miralax -DC dobbins when up and about, bedside commode if needed -DVT PPX: OK to restart Heparin tonight -Hygiene: Shower today. Maintain dressing clean and dry. -Encourage IS 10x/hr -Dispo: Anticipate discharge home to [facility] *I reviewed and discussed this case with my attending Dr. Wilson, whom has reviewed this chart and films and is in agreement with assessment and plan of care as outlined above. I have personally seen and examined the patient, performed the documentation and the assessment and plan as written. Number of minutes spent on the visit: 20m
--- NOTE | 2022-10-01 17:11 | P.PN ---
Subjective Progress Note Date: 10/01/22 Hospital course: Patient is a very pleasant 87-year-old male with a past medical history of hypertension, hyperlipidemia, GERD, glaucoma and asbestosis. Patient presented to the emergency department on 09/29/22 secondary to left hip pain status post mechanical fall. Patient reported he was attempting to get in his car when he lost balance and fell onto his left side resulting in immediate pain and inability to stand. Patient denied hitting his head, losing consciousness, or experiencing any other injuries in this fall. He underwent full evaluation in the emergency department. X-ray left hip was completed in radiology report reviewed stating left femoral neck fracture with varus deformity and shortening. Labs were completed and reviewed. CBC showing normocytic anemia with hemoglobin of 11.8. BMP revealing prerenal azotemia with BUN of 24 and stable glucose of 124. Liver profile was unremarkable. Magnesium also normal findings at 2.0. Patient was admitted under orthopedic surgery team and we were consulted for medical clearance and medical management throughout hospitalization. Patient underwent ORIF with intramedullary pari insertion of left hip by Dr. Wilson on 09/30/22. Physical exam: Patient seen and fully evaluated at bedside this morning, family visiting at bedside. Patient reports mild pain to left hip otherwise denies having any pain or complaints at this time. Patient did have significant drop in hemoglobin from 11.8 down to 8.2. However patient has no signs of active bleeding. Drop in hemoglobin may be multifactorial secondary to blood loss as well as diuresis as patient has received moderate IV fluid intake over the past 24 hours. IV fluids have been discontinued as patient is tolerating oral intake without any difficulties. Vital signs reviewed and stable. General: Nontoxic, no distress and appears stated age. Derm: Skin warm and dry, normal coloration for ethnicity. Postoperative dressing clean, dry, and intact left lateral hip/thigh. Head: Atraumatic, normocephalic and symmetric. Eyes: EOMs intact, no lid lag, and anicteric sclera Mouth: no lip lesions, mucus membranes moist Cardiovascular: regular rate and rhythm with normal S1S2, systolic murmur, positive posterior tibial pulses bilaterally, and cap refill < 2 seconds. Lungs: Respirations even, regular, and unlabored on room air. Lungs diminished with no rhonchi, no rales, no wheezing, and no accessory muscle usage. Abdominal: soft, nontender to palpation, no guarding, no appreciable organomegaly Ext: ROM intact. No gross muscle atrophy, no edema, no contractures Neuro: Speech clear, face symmetrical and CN II-XII grossly intact with no noted focal neuro deficits Psych: Alert and oriented to person, place, time, and situation. Appropriate and pleasant affect. Assessment and Plan of Care: Acute postoperative blood loss anemia, greater than expected finding. -Patient with greater than 3 g drop in postoperative hemoglobin. Preoperative hemoglobin of 11.8 with postoperative hemoglobin of 8.2. -Patient has no signs of active bleeding. Drop in hemoglobin may be multifactorial secondary to blood loss as well as diuresis as patient has received moderate IV fluid intake over the past 24 hours. -IV fluids have been discontinued as patient is tolerating oral intake without any difficulties. -Order placed for repeat hemoglobin levels later this evening and again tomorrow morning for close monitoring. Patient to receive blood transfusion for hemoglobin less than 7 or any signs of active bleeding. Fall resulting in displaced left femoral neck fracture Status post ORIF with intramedullary pari insertion of left hip by Dr. Wilson on 09/30/22. -Symptomatic care and pain management. -Management of DVT prophylaxis, pain management, wound/dressing care, weightbearing, and PT/OT per primary admitting orthopedic surgery team. -Currently DVT prophylaxis with Lovenox 40 mg daily. -Order placed for repeat CBC and BMP tomorrow morning, we will follow-up on postoperative hemoglobin, renal function and electrolyte levels and place additional orders as needed based upon these results. History of asbestosis -Oxygenation to be administered as needed and titrated as needed to maintain SPO2 equal to or greater than 92% -Monitor Pulse-oximetry -Order placed for Duonebs as needed for SOB and/or wheezing -Order placed for Incentive Spirometry, encourage use 10-15 times hourly while awake. History of hypertension -Currently blood pressure stable 125/75. -Home medications reviewed and reordered. Patient to continue with lisinopril 20 mg daily. History of hyperlipidemia Medications reviewed and reordered. Patient to continue with lovastatin 40 mg daily. History of glaucoma -Home medications reviewed and reordered. Patient to continue with atenolol 0.5% ophthalmologic drops, 1 drop each eye daily. Thank you for allowing us to participate in the care of this pleasant patient. Do not hesitate to contact us with questions. Someone can be reached from the [facility] hospitalist group all hours of the day at [phone] or via perfect serve. Patient was seen independently by Nurse Pracitioner. This document was prepared using [place] dictation software. Please allow for errors in oven heater helper, while rare they do occur. Yvon Jeter HAND SIZER rendered care for this patient independently, reviewed the findings and plan as documented in the note above. I did not physically speak with or examine the patient on this date. Objective - Vital Signs Vital signs: Vital Signs Temp 98.6 F 10/01/22 07:39 Pulse 93 10/01/22 07:39 Resp 18 10/01/22 07:39 BP 122/71 10/01/22 07:39 Pulse Ox 92 L 10/01/22 07:39 FiO2 Intake & Output 09/30/22 10/01/22 10/01/22 18:59 06:59 18:59 Intake Total 1590 236 Output Total 550 350 Balance 1040 -350 236 Intake: IV 1590 Sodium Chloride 0.9% 1, 1040 000 ml @ 130 mls/hr IV . Q7H42M [facility] Rx#:[id number] Oral 236 Output: Urine 500 350 Estimated Blood Loss 50 Other: Voiding Method Indwelling Catheter Indwelling Catheter - Labs CBC & Chem 7: 10/02/22 04:48 10/02/22 04:48
[2022-10-01 20:10] LABS: HCT 22.1 % (39.0-53.0); HGB 7.5 gm/dL (13.0-17.5); MCH 31.8 pg (25.0-35.0); MCV 93.5 fL (80.0-100.0); Mean Platelet Volume 8.5; Platelet Count 169 k/uL (150-450); RBC 2.37 m/uL (4.30-5.90); RDW 13.8 % (11.5-15.5); WBC 10.8 k/uL (3.8-10.6)
[2022-10-01] MEDS: SENNOSIDES-DOCUSATE SODIUM 1 EACH TAB PO SCH (21:34)
[2022-10-02] MEDS ORDERED: HYDROmorphone 1 MG/ML 1 ML SYRINGE IVP PRN (08:04)
[2022-10-02] MEDS: ENOXAPARIN 40 MG/0.4 ML SYRINGE SQ SCH (08:41)
[2022-10-02] MEDS: HYDROcodone/APAP 5-325MG 1 EACH TAB PO SCH ×4 (08:41→21:05)
[2022-10-02] MEDS: lisinopriL 20 MG TAB PO SCH (08:41)
[2022-10-02] MEDS: ATORVASTATIN 10 MG TAB PO SCH (08:41)
--- NOTE | 2022-10-02 08:44 | P.PN ---
Subjective Progress Note Date: 10/02/22 Principal diagnosis: 1. left hip IT fracture, 4 part , closed. 2. s/p ffs Patient seen and examined this morning at bedside. Patient is resting currently in bed. Patient does have complaint of pain in the left hip with any activity. Medication has been adjusted. Patient denies any numbness or tingling into the left lower extremity. Encouraged patient to work with physical therapy today. Hgb 7.5 this morning, Hct 22.1, patient will recieve 1 unit RBC. Surgical dressing to the left hip is clean dry and intact. Patient's been afebrile, denies nausea/vomiting, or chest pain. Objective - Vital Signs Vital signs: Vital Signs Temp 99.2 F 10/02/22 06:58 Pulse 86 10/02/22 06:58 Resp 18 10/02/22 06:58 BP 148/74 10/02/22 06:58 Pulse Ox 91 L 10/02/22 08:19 FiO2 Intake & Output 10/01/22 10/02/22 10/02/22 18:59 06:59 18:59 Intake Total 236 Output Total 500 300 Balance -264 -300 Intake: Oral 236 Output: Urine 500 300 Uretheral (Dobbins) 300 Other: Voiding Method Indwelling Catheter Indwelling Catheter - Exam Patient is awake, alert and oriented. No acute distress. Well developed, hydrated and nourished. Appears stated age. They do not appear septic. On exam, the patient has tenderness to palpation over the left hip. Surgical dressings are CDI. Skin is warm, dry and intact without rashes or lesions. Appropriate color for ethnicity. Nailbeds pink with no cyanosis or clubbing. Upper and lower extremities are atraumatic in appearance without tenderness or deformity. Full range of motion is noted to all joints, with exception to left hip due to limitation due to pain and stiffness from surgical procedure. Muscle strength is 5/5 bilateral upper extremities, and 4/5 in right lower extremity, 3+/5 in left lower extremity due to pain. Event Services Manager strength is normal bilaterally. Dorsi/plantar flexion is normal bilaterally.Tendon function is normal. Capillary refill is less than 3 seconds in all extremities. Palpable dorsalis pedis and posterior tibial pulses. Sensation is intact bilaterally, They are intact to light touch sensation in L2 to S1 nerve distribution. Reflexes 2+ bilaterally. Cranial nerves are intact. No clonus is noted. No tensioning signs. Compartments are soft and compressible. - Labs CBC & Chem 7: 10/01/22 19:43 10/01/22 06:45 Labs: Abnormal Lab Results - Last 24 Hours (Table) 10/01/22 10/01/22 10/01/22 Range/Units 06:45 06:45 19:43 WBC 11.2 H 10.8 H (3.8-10.6) k/uL RBC 2.60 L 2.37 L (4.30-5.90) m/uL Hgb 8.2 L D 7.5 L (13.0-17.5) gm/dL Hct 24.3 L 22.1 L (39.0-53.0) % Glucose 130 H (74-99) mg/dL Calcium 7.9 L (8.4-10.2) mg/dL Assessment and Plan Assessment: Postop day 2: Left hip IMN fixation 1. Left hip IT fracture, 4 part , closed. 2. s/p ffs Plan: -Appreciate territory sales consultant and team management. -Transfuse 1 unit RBC -Activity: Ambulate QID, OOB all meals, up and about, limit lifting bending twisting to less than 5 lbs. Use walker or cane if needed for stability. -Daily PT/OT, increase ambulation strength and balance. -Pain control: Adequate at this time -Meds: reviewed -GI ppx: senna, Miralax -DC dobbins when up and about, bedside commode if needed -DVT PPX: OK to restart Heparin tonight -Hygiene: Shower today. Maintain dressing clean and dry. -Encourage IS 10x/hr -Dispo: Anticipate discharge home to [facility] *I reviewed and discussed this case with my attending Dr. Wilson, whom has reviewed this chart and films and is in agreement with assessment and plan of care as outlined above. I have personally seen and examined the patient, performed the documentation and the assessment and plan as written. Number of minutes spent on the visit: 20m
[2022-10-02] MEDS: TIMOLOL 0.5% OPHTH DROPS 5 ML BTL BOTH EYES SCH (08:56)
--- NOTE | 2022-10-02 08:57 | P.OP ---
Date of Procedure: 09/30/22 Preoperative Diagnosis: 1. Left hip IT fracture, 4 part, displaced, closed 2. sp ffs 3. Advanced age, debility Postoperative Diagnosis: 1. Left hip IT fracture, 4 part, displaced, closed 2. sp ffs 3. Advanced age, debility Procedure(s) Performed: 1. Left hip IMN fixation (16886) Implants: [employer] 13 mm x 180mm 125 deg short nail. Anesthesia: spinal Surgeon: Kojo Wilson Meter Tester #1: Tamra Pineda (Was present and assisted with all aspects of the case from positioning to dressing placement) Estimated Blood Loss (ml): 100 IV fluids (ml): 250 Urine output (ml): 0 Pathology: none sent Condition: stable Disposition: PACU Indications for Procedure: Shahid Davila is a 87 yo male presenting for evaluation of sudden onset Left hip pain, inability to ambulate after fall from standing. It was my pleasure to have seen and examinedShahid Davila. In our visit today we have had a chance to go over subjective complaints, physical examination findings and treatments including the natural course history without intervention and various interventional options. His imaging demonstrates Left hip IT fracture. On physical exam, Shahid Davila demonstrat es pain with motion of LLE, which is NV intact at this time. I have explained to the patient that this fracture needs stabilization. Based on the patients imaging, physical exam, and the rapid progression and disabling nature of her symptoms, at this time I recommend surgery in the form or a: Left hip IMN fixation I discussed the risk and benefits of this procedure at length with Shahid Davila and his family at bedside. Questions were invited and answered, and the patient wishes to proceed as outlined below. Currently, I am recommendin. Left hip intramedullary nail fixation Description of Procedure: The patient was seen and examined in the preoperative area. All preoperative protocols were followed. Informed consent was obtained risks and benefits of the procedure were discussed at length. Risks including bleeding infection damage to the surrounding tissue and risk of reoperation were discussed with the patient. Risk of anesthesia up to and including was a discussed with the patient. These are outlined in the risk reviewed. They were willing to accept these risks and all of the risks of surgery. The patient was given a weight- based dose of antibiotics in the form of 2 g Ancef. The patient was seen and evaluated by the anesthesia team who deemed them fit for surgery. The site was marked, the patient was willing to proceed with the procedure. The patient was transferred to the operative suite by the Department of an esthesia. There were then drifted off to sleep by the department of anesthesia and spinal sedation anesthesia was used. Once adequate anesthesia had been obtained the patient was carefully transferred to the operative bed. All bony prominences were padded accordingly. SCDs were placed on the nonoperative lower extremities. Arms were well padded. Patient was placed on a Laurie table left lower extremity was placed in the Laurie boot villalpando and the right lower shoulder was placed in a well-leg villalpando patient was secured to the table with arms crossed across the chest well padded. Fluoroscopic imaging was used to reduce the fracture. Preoperative briefing was done with the operative team and everyone was ready for the procedure to start. The patients left lower extremity was then prepped and draped in the normal sterile fashion. Timeout was then performed and all parties in agreement with the procedure to be performed. Skin incision was made in line with the femur 2 cm proximal to the greater trochanter the sharp awl was used to access the femur and an ideal starting point in AP and lateral imaging. Ball-tip guidewire was then placed on the shaft of the femur. Opening reamer was then placed followed by sequential reamers up to 13 5. Short nail 13 mm x 1 80 on 25 was selected and placed over the guidewire and impacted into position once in good position the jig for the lag screw was placed skin incision made over the lateral aspect of the leg dissection bluntly taken down to the femur and the jig was seated against bone. It was then placed for the lag screw and measured a matching compression screw was then drilled. Leg screws and placed over the pin and compression screw placed. We did achieve about 10 mm of compression of this fracture. The nail was then locked proximally. The jig was then removed and the guide was placed for the static locking screw distally. Skin incision was made and this was seated against bone was then drilled and measured and locking screw placed. AP and lateral imaging confirmed good placement of hardware as well as reduction of fracture. Outrigger jig was then removed and final imaging taken. The wounds were then copiously irrigated with normal sterile saline. Deep fascia and TFL closed with 0 Vicryl superficial fascia closed with 2-0 Vicryl superficial subcu with 2-0 Vicryl and skin with skin enrrique the wound edges approximated very well. The wound was then cleaned and dressed sterilely with operative foam dressings. The patient was then transferred back to their hospital bed. There were awakened by department of anesthesia having tolerated the procedure very well with no complications. The patient was then transported to the postoperative care unit in stable condition.
[2022-10-02 09:26] LABS: African American GFR (CKD) 91.8 (60.0-200.0); Anion Gap 9.7 mmol/L (10.00-18.00); BUN/Creat Ratio 13.13 Ratio (12.00-20.00); Blood Urea Nitrogen 10.5 mg/dL (9.0-27.0); Calcium 8.2 mg/dL (8.7-10.3); Carbon Dioxide 23.3 mmol/L (20.0-27.5); Magnesium 1.9 mg/dL (1.5-2.4); Non-African American GFR(CKD) 79.2 (60.0-200.0); Potassium 3.9 mmol/L (3.5-5.5)
[2022-10-02 09:45] LABS: MCH 31.5 pg (27.0-32.0); MCV 98.4 fL (80.0-97.0); Mean Platelet Volume 10.9 fL (9.5-12.2); NRBC Per 100 WBC 0 /100 WBCS (0.0-0.0); Platelet Count 158 X 10*3/uL (140-440); RBC 2.54 X 10*6/uL (4.40-5.60); RDW 13.6 % (11.5-14.5); WBC 12.46 X 10*3/uL (4.50-10.00)
--- NOTE | 2022-10-02 17:25 | P.PN ---
Subjective Progress Note Date: 10/02/22 Hospital course: Patient is a very pleasant 87-year-old male with a past medical history of hypertension, hyperlipidemia, GERD, glaucoma and asbestosis. Patient presented to the emergency department on 09/29/22 secondary to left hip pain status post mechanical fall. Patient reported he was attempting to get in his car when he lost balance and fell onto his left side resulting in immediate pain and inability to stand. Patient denied hitting his head, losing consciousness, or experiencing any other injuries in this fall. He underwent full evaluation in the emergency department. X-ray left hip was completed in radiology report reviewed stating left femoral neck fracture with varus deformity and shortening. Labs were completed and reviewed. CBC showing normocytic anemia with hemoglobin of 11.8. BMP revealing prerenal azotemia with BUN of 24 and stable glucose of 124. Liver profile was unremarkable. Magnesium also normal findings at 2.0. Patient was admitted under orthopedic surgery team and we were consulted for medical clearance and medical management throughout hospitalization. Patient underwent ORIF with intramedullary pari insertion of left hip by Dr. Wilson on 09/30/22. Physical exam: Patient seen and fully evaluated at bedside this morning. He reports only mild pain postsurgical left hip site this morning. He denies having any other complaints including headache, lightheadedness, dizziness, chest pain, palpitations, or shortness of breath. Vital signs reviewed and stable. General: Nontoxic, no distress and appears stated age. Derm: Skin warm and dry, normal coloration for ethnicity. Postoperative dressing clean, dry, and intact left lateral hip/thigh. Head: Atraumatic, normocephalic and symmetric. Eyes: EOMs intact, no lid lag, and anicteric sclera Mouth: no lip lesions, mucus membranes moist Cardiovascular: regular rate and rhythm with normal S1S2, systolic murmur, positive posterior tibial pulses bilaterally, and cap refill < 2 seconds. Lungs: Respirations even, regular, and unlabored on room air. Lungs diminished with no rhonchi, no rales, no wheezing, and no accessory muscle usage. Abdominal: soft, nontender to palpation, no guarding, no appreciable organomegaly Whitley catheter in place.. Ext: ROM intact. No gross muscle atrophy, no edema, no contractures Neuro: Speech clear, face symmetrical and CN II-XII grossly intact with no noted focal neuro deficits Psych: Alert and oriented to person, place, time, and situation. Appropriate and pleasant affect. Assessment and Plan of Care: Morning labs reviewed. CBC revealing stable hemoglobin 8.0 and BMP unremarkable. Acute postoperative blood loss anemia, greater than expected finding. -Patient with greater than 3 g drop in postoperative hemoglobin. Preoperative hemoglobin of 11.8 with postoperative hemoglobin of 8.2 and dropping down to 7.5. Hemoglobin is now stable at 8.0. -Patient has no signs of active bleeding and no need for intervention at this time. -Order placed for repeat hemoglobin levels later this evening and again tomorrow morning for close monitoring. Patient to receive blood transfusion for hemoglobin less than 7 or any signs of active bleeding. Fall resulting in displaced left femoral neck fracture Status post ORIF with intramedullary pari insertion of left hip by Dr. Wilson on 09/30/22. -Symptomatic care and pain management. -Management of DVT prophylaxis, pain management, wound/dressing care, weightbearing, and PT/OT per primary admitting orthopedic surgery team. -Currently DVT prophylaxis with Lovenox 40 mg daily. -Order placed for repeat CBC and BMP tomorrow morning, we will follow-up on postoperative hemoglobin, renal function and electrolyte levels and place additional orders as needed based upon these results. History of asbestosis -Oxygenation to be administered as needed and titrated as needed to maintain SPO2 equal to or greater than 92% -Monitor Pulse-oximetry -Order placed for Duonebs as needed for SOB and/or wheezing -Order placed for Incentive Spirometry, encourage use 10-15 times hourly while awake. History of hypertension -Currently blood pressure stable 148/74 prior to morning antihypertensive medication administration. -Home medications reviewed and reordered. Patient to continue with lisinopril 20 mg daily. History of hyperlipidemia Medications reviewed and reordered. Patient to continue with lovastatin 40 mg daily. History of glaucoma -Home medications reviewed and reordered. Patient to continue with atenolol 0.5% ophthalmologic drops, 1 drop each eye daily. Thank you for allowing us to participate in the care of this pleasant patient. Do not hesitate to contact us with questions. Someone can be reached from the [facility] hospitalist group all hours of the day at [phone] or via [employer] serve. Patient was seen independently by Nurse Pracitioner. This document was prepared using Dragon dictation software. Please allow for errors in flare maker, while rare they do occur. Objective - Vital Signs Vital signs: Vital Signs Temp 99.2 F 10/02/22 06:58 Pulse 86 10/02/22 06:58 Resp 18 10/02/22 06:58 BP 148/74 10/02/22 06:58 Pulse Ox 91 L 10/02/22 08:19 FiO2 Intake & Output 10/01/22 10/02/22 10/02/22 18:59 06:59 18:59 Intake Total 236 Output Total 500 300 Balance -264 -300 Intake: Oral 236 Output: Urine 500 300 Uretheral (Whitley) 300 Other: Voiding Method Indwelling Catheter Indwelling Catheter - Labs CBC & Chem 7: 10/02/22 04:48 10/02/22 04:48 Labs: Abnormal Lab Results - Last 24 Hours (Table) 10/01/22 10/01/22 10/01/22 Range/Units 06:45 06:45 19:43 WBC 11.2 H 10.8 H (3.8-10.6) k/uL RBC 2.60 L 2.37 L (4.30-5.90) m/uL Hgb 8.2 L D 7.5 L (13.0-17.5) gm/dL Hct 24.3 L 22.1 L (39.0-53.0) % Glucose 130 H (74-99) mg/dL Calcium 7.9 L (8.4-10.2) mg/dL
[2022-10-02] MEDS: SENNOSIDES-DOCUSATE SODIUM 1 EACH TAB PO SCH (21:04)
[2022-10-03] MEDS: HYDROcodone/APAP 5-325MG 1 EACH TAB PO SCH ×6 (00:51→16:47)
[2022-10-03 02:12] VITALS: BP 132/73; PULSE 81; RESP 18; TEMP 98
--- NOTE | 2022-10-03 07:16 | P.PN ---
Subjective Progress Note Date: 10/03/22 Principal diagnosis: 1. left hip IT fracture, 4 part , closed. 2. s/p ffs Patient seen and examined this morning at bedside. Patient is resting currently in bed. Patient reports his pain is managed on current regimen. He states he was able to work with therapy and needed max assistance to ambulate to chair. He states he is ready for VERONICA. Whitley cath was discontinued yesterday, he states he is urinating without difficulty. Patient is cleared from an Orthopedic standpoint for discharge when bed available. Encouraged patient to work with physical therapy today. Surgical dressing to the left hip is clean dry and intact. Patient's been afebrile, denies nausea/vomiting, or chest pain. Objective - Vital Signs Vital signs: Vital Signs Temp 98.0 F 10/03/22 02:12 Pulse 81 10/03/22 02:12 Resp 18 10/03/22 02:12 BP 132/73 10/03/22 02:12 Pulse Ox 90 L 10/03/22 02:12 FiO2 Intake & Output 10/02/22 10/03/22 10/03/22 18:59 06:59 18:59 Intake Total 354 Output Total 300 400 Balance 54 -400 Intake: Oral 354 Output: Urine 300 400 Uretheral (Whitley) 300 Other: Voiding Method Urinal - Exam Patient is awake, alert and oriented. No acute distress. Well developed, hydrated and nourished. Appears stated age. They do not appear septic. On exam, the patient has tenderness to palpation over the left hip. Surgical dressings are CDI. Skin is warm, dry and intact without rashes or lesions. Appropriate color for ethnicity. Nailbeds pink with no cyanosis or clubbing. Upper and lower extremities are atraumatic in appearance without tenderness or deformity. Full range of motion is noted to all joints, with exception to left hip due to limitation due to pain and stiffness from surgical procedure. Muscle strength is 5/5 bilateral upper extremities, and 4/5 in right lower extremity, 4-/5 in left lower extremity due to pain. Side Laster Tack strength is normal bilaterally. Dorsi/plantar flexion is normal bilaterally.Tendon function is normal. Capillary refill is less than 3 seconds in all extremities. Palpable dorsalis pedis and posterior tibial pulses. Sensation is intact bilaterally, They are intact to light touch sensation in L2 to S1 nerve distribution. Reflexes 2+ bilaterally. Cranial nerves are intact. No clonus is noted. No tensioning signs. Compartments are soft and compressible. - Labs CBC & Chem 7: 10/02/22 04:48 10/02/22 04:48 Labs: Abnormal Lab Results - Last 24 Hours (Table) 10/02/22 10/02/22 10/02/22 Range/Units 04:48 04:48 08:43 WBC 12.46 H (4.50-10.00) X 10*3/uL RBC 2.54 L (4.40-5.60) X 10*6/uL Hgb 8.0 L (13.0-17.0) g/dL Hct 25.0 L (39.6-50.0) % MCV 98.4 H (80.0-97.0) fL Anion Gap 9.70 L (10.00-18.00) mmol/L Calcium 8.2 L (8.7-10.3) mg/dL Crossmatch See Detail Assessment and Plan Assessment: Postop day 3: Left hip IMN fixation 1. Left hip IT fracture, 4 part , closed. 2. s/p ffs Plan: -Appreciate managed services consultant and team management. -Activity: Ambulate QID, OOB all meals, up and about, limit lifting bending twisting to less than 5 lbs. Use walker or cane if needed for stability. -Daily PT/OT, increase ambulation strength and balance. -Pain control: Adequate at this time -Meds: reviewed -GI ppx: senna, Miralax -DVT PPX: Heparin -Hygiene: Shower today. Maintain dressing clean and dry. -Encourage IS 10x/hr -Dispo: Anticipate discharge to [facility] when bed available, patient is cleared for discharge from an Orthopedic standpoint. *I reviewed and discussed this case with my attending Dr. Wilson, whom has reviewed this chart and films and is in agreement with assessment and plan of care as outlined above. I have personally seen and examined the patient, performed the documentation and the assessment and plan as written. Number of minutes spent on the visit: 20m
[2022-10-03] MEDS: ATORVASTATIN 10 MG TAB PO SCH ×2 (09:49→09:54)
[2022-10-03] MEDS: ENOXAPARIN 40 MG/0.4 ML SYRINGE SQ SCH (09:49)
[2022-10-03] MEDS: lisinopriL 20 MG TAB PO SCH ×2 (09:50→09:58)
[2022-10-03] MEDS: TIMOLOL 0.5% OPHTH DROPS 5 ML BTL BOTH EYES SCH (09:52)
--- NOTE | 2022-10-03 13:35 | P.DS ---
Providers Date of admission: 09/29/22 18:46 Expected date of discharge: 10/03/22 Attending physician: Kojo Wilson DO Consults: 09/29/22 19:49 Consult Physician Routine Consulting Provider: Donna Mcintyre Consult Reason/Comments: Medical Management and surgical clearance Do you want consulting provider notified?: Yes Primary care physician: Physician Nonstaff Hospital Course: Hospital Course: The patient was evaluated preoperatively and found to have the diagnosis of left hip fracture. They underwent appropriate preoperative care and were willing to undergo the intended procedure. They underwent a successful left IMN fixation, were recovered appropriately and sent to the floor. While on the floor they worked with physical therapy, occupational therapy and nursing to enhance their recovery experience. Their pain was well controlled through their stay and they were started on appropriate medications, DVT ppx modalities, activity and dietary needs. Daily labs were monitored closely, and transfusions were only used when necessary. Medicine as well as other consulting services have made their input and have helped with our team approach and multidisciplinary care. PT milestones have been met and passed and they have made the recommendation of subacute rehab for this patient and treating providers agree with this care path. The patient will be discharged home with appropriate medications, instructions and follow-up information and in stable condition. Patient Condition at Discharge: Fair Plan - Discharge Summary Discharge Rx Participant: Yes New Discharge Prescriptions: New Aspirin 325 mg PO BID #60 tab Sennosides/Docusate Sodium [Senna Plus 8.6-50 mg Tablet] 1 each PO DAILY PRN #20 tablet PRN Reason: Constipation HYDROcodone/APAP 10-325MG [[place] 10-325] 1 tab PO Q4-6H PRN #42 tab PRN Reason: Pain No Action lisinopriL [Zestril] 20 mg PO DAILY Lovastatin [Mevacor] 40 mg PO DAILY Aspirin [Adult Low Dose Aspirin EC] 81 mg PO DAILY Timolol 0.5% Ophth Soln [Timoptic 0.5% Ophth Soln] 1 drop BOTH EYES DAILY Discharge Medication List Aspirin [Adult Low Dose Aspirin EC] 81 mg PO DAILY 11/02/17 [History] Lovastatin [Mevacor] 40 mg PO DAILY 11/02/17 [History] lisinopriL [Zestril] 20 mg PO DAILY 11/02/17 [History] Timolol 0.5% Ophth Soln [Timoptic 0.5% Ophth Soln] 1 drop BOTH EYES DAILY 09/29/22 [History] Aspirin 325 mg PO BID #60 tab 10/03/22 [Rx] HYDROcodone/APAP 10-325MG [[place] 10-325] 1 tab PO Q4-6H PRN #42 tab 10/03/22 [Rx] Sennosides/Docusate Sodium [Senna Plus 8.6-50 mg Tablet] 1 each PO DAILY PRN #20 tablet 10/03/22 [Rx] Follow up Appointment(s)/Referral(s): [facility], [NON-STAFF] - As Needed Nonstaff,Physician [Primary Care Provider] - 1-2 days Kojo Wilson DO [Doctor of Osteopathic Medicine] - 10 Days Patient Instructions/Handouts: ORIF of Hip Fracture (DC) Activity/Diet/Wound Care/Special Instructions: Keep incision clean and dry. No baths or soaking. May shower and allow soapy water to run over incisions and pat dry. Can leave open to air once there is no drainage. Activity: WBAT QID, up and about for meals. Take pain medication as directed, may use ice and elevation. Follow up in office in 10 days. Discharge Disposition: TRANSFER TO SNF/ECF
--- NOTE | 2022-10-03 13:45 | P.PN ---
Subjective Progress Note Date: 10/03/22 Hospital course: Patient is a very pleasant 87-year-old male with a past medical history of hype rtension, hyperlipidemia, GERD, glaucoma and asbestosis. Patient presented to the emergency department on 09/29/22 secondary to left hip pain status post mechanical fall. Patient reported he was attempting to get in his car when he lost balance and fell onto his left side resulting in immediate pain and inability to stand. Patient denied hitting his head, losing consciousness, or experiencing any other injuries in this fall. He underwent full evaluation in the emergency department. X-ray left hip was completed in radiology report reviewed stating left femoral neck fracture with varus deformity and shortening. Labs were completed and reviewed. CBC showing normocytic anemia with hemoglob in of 11.8. BMP revealing prerenal azotemia with BUN of 24 and stable glucose of 124. Liver profile was unremarkable. Magnesium also normal findings at 2.0. Patient was admitted under orthopedic surgery team and we were consulted for medical clearance and medical management throughout hospitalization. Patient underwent ORIF with intramedullary pari insertion of left hip by Dr. Wilson on 09/30/22. When I went in the room patient was sitting in the chair. Patient stated that he would like to get back in bed. He otherwise denies any acute complaints. Physical exam: General examination - Alert and Oriented 3 in NAD Heart - + S1S2 no murmurs Lungs - Clear to auscultation Abdomen soft NT ND +ve BS Extremities - No edema, restricted range of motion of the left lower extremity RECRUITMENT MANAGER - Moving all 4 extremities spontaneously Psych - Calm and cooperative Assessment Acute postoperative blood loss anemia -Hemoglobin was stable yesterday Left femoral neck fracture Fall Status post ORIF -Patient will be discharged to longterm facility History of asbestosis Stable History of hypertension -Blood pressure controlled -Resume home meds Hyperlipidemia -Resume statin History of glaucoma -Resume eyedrops Patient stable for discharge to longterm facility from a medical standpoint Anticipated discharge: [facility] facility Anticipated discharge place: Today Objective - Vital Signs Vital signs: Vital Signs Temp 98.0 F 10/03/22 02:12 Pulse 81 10/03/22 02:12 Resp 18 10/03/22 02:12 BP 132/73 10/03/22 02:12 Pulse Ox 90 L 10/03/22 02:12 FiO2 Intake & Output 10/02/22 10/03/2210/03/23 18:59 06:59 18:59 Intake Total 354 Output Total 300 400 Balance 54 -400 Intake: Oral 354 Output: Urine 300 400 Uretheral (Whitley) 300 Other: Voiding Method Urinal - Labs CBC & Chem 7: 10/02/22 04:48 10/02/22 04:48
== END 2022-10-03 17:06 | DRG 481 ==
LOC: EC 16:19 → 4SSUR 18:46
PROVIDERS: ADMIT Orthopaedic Surgery; ATTEND Orthopaedic Surgery
PROC: 0QS736Z Reposition Left Upper Femur with Intramedullary Internal Fixation Device, Percutaneous Approach (ICD-10-PCS; principal; 2022-09-30 08:00)
DX: S72.142A Displaced intertrochanteric fracture of left femur, initial encounter for closed fracture (principal); D62 Acute posthemorrhagic anemia; E78.5 Hyperlipidemia, unspecified; I10 Essential (primary) hypertension; K21.9 Gastro-esophageal reflux disease without esophagitis; J92.0 Pleural plaque with presence of asbestos; H40.9 Unspecified glaucoma; R59.9 Enlarged lymph nodes, unspecified; R79.89 Other specified abnormal findings of blood chemistry; Z79.82 Long term (current) use of aspirin; Z79.899 Other long term (current) drug therapy; Z77.090 Contact with and (suspected) exposure to asbestos; W01.0XXA Fall on same level from slipping, tripping and stumbling without subsequent striking against object, initial encounter; Y92.414 Local residential or business street as the place of occurrence of the external cause
CPT/HCPCS: 36415; 71045; 73501; 73502; 80048; 80053; 83735; 84100; 85025; 85027; 85610; 85730; 86850; 86900; 86901; 86920; 94760; 96361; 96374; 96375; 96376; 99285